=== PATIENT | male | born 1960 | race Caucasian/White ===

== ENCOUNTER 2019-08-23 08:54 | Outpatient (CLI) | payer OTHER, SELFPAY ==
--- NOTE | 2019-08-23 | ECHO_ITS ---
Patient Info Name: Santos Sesay Age: 59 years : 1960 Gender: Male Ht: 71 in Wt: 210 lbs BSA: 2.21 m2 HR: 70 bpm BP: 172 / 115 mmHg Heart Rhythm: Sinus Rhythm Technical Quality: Good Exam Date: 08/23/2019 9:26 AM Exam Location: [facility] Patient Status: Outpatient Admit Date: 08/23/2019 Staff Ordering Physician: RegFaviola APRN Supervisor Contact And Service Clerks: Maryan Jaeger RDCS Attending Provider: KirbyFaviola APRN Exam Type: CA echo doppler color flow Study Info Indications R07.89 - Other chest pain - tobacco use Complete two-dimensional, color flow and Doppler transthoracic echocardiogram is performed. Summary 1. There is mildly increased left ventricular wall thickness. 2. Left ventricular systolic function is normal, estimated at 55-60%. 3. The left ventricular diastolic function is grade I diastolic dysfunction. 4. There is mild aortic valve sclerosis. 5. There is no aortic valve stenosis. 6. There is no aortic valve regurgitation. 7. There is trace mitral valve regurgitation. 8. The mitral valve annulus is mildly calcified. 9. There is mild tricuspid valve regurgitation. 10. No pulmonary hypertension, estimated pulmonary arterial systolic pressure is 31 mmHg. 11. There is trivial pericardial effusion. Left Ventricle Left ventricular chamber dimension is normal. Left ventricular systolic function is normal, estimated at 55-60%. There is mildly increased left ventricular wall thickness. The left ventricular diastolic function is grade I diastolic dysfunction. Right Ventricle Right ventricular chamber dimension is normal. Right ventricular systolic function is normal. Left Atria Left atrial chamber dimension is normal. Right Atria Right atrial chamber dimension is normal. Aortic Valve The aortic valve is probable trileaflet. There is mild aortic valve sclerosis. There is no aortic valve stenosis. There is no aortic valve regurgitation. Pulmonic Valve The pulmonic valve is normal. There is mild pulmonic regurgitation. Mitral Valve The mitral valve has normal leaflets. There is trace mitral valve regurgitation. The mitral valve annulus is mildly calcified. Tricuspid Valve The tricuspid valve leaflets are normal. There is mild tricuspid valve regurgitation. No pulmonary hypertension, estimated pulmonary arterial systolic pressure is 31 mmHg. Pericardium/Pleural The pericardium appears normal. There is trivial pericardial effusion. Inferior Vena Cava Normal inferior vena cava with >50% collapse upon inspiration consistent with normal right atrial pressure, 5 mmHg. Aorta The aortic root size at the sinus of Valsalva is normal. Left Ventricular Outflow Tract Name Value Normal LVOT 2D LVOT Diameter 2.0 cm LVOT Doppler LVOT Peak Gradient 4 mmHg LVOT Mean Gradient 2 mmHg LVOT VTI 22 cm LVOT VTI/AV VTI Ratio 0.9 LVOT Stroke Volume 67 ml LVOT CO 13.3 l
== END 2019-08-23 08:55 | disposition home or self-care (01) ==
PROVIDERS: PCP Physician Assistant; Visit Provider Nurse Practitioner Gerontology
DX: Z72.0 Tobacco use (principal)
CPT/HCPCS: 93306